=== PATIENT | female | born 1960 | race Caucasian/White ===

== ENCOUNTER 2016-12-14 00:05 | Emergency (ER) | payer OTHER ==
[~2016-12-14] VITALS: Ht 152.4 cm; Wt 70.1 kg
[~2016-12-14 00:05] MED LIST: BENTYL10 MG PO; DAILY VALUE1 EACH PO; HYDROCHLOROTHIA25 MG PO; LISINOPRIL2.5 MG PO; LO-DOSE ASPIRIN81 M1 PO; PRILOSEC20 MG PO; PROMETHAZINE HC25 M1 PO; TYLENOL REGULA325 MG PO; TYLENOL WITH C1 EACH PO
[2016-12-14 00:55] LABS: HEMATOCRIT 42.6 % (36.0-46.0); MCH 29.2 PG (29.0-34.0); MCHC 33.3 G/DL (30.0-36.0); MCV 87.5 FL (83-99); MEAN PLAT.VOLUME 9.8 uM^3 (9.5-12.4); PLATELET COUNT 344 K/uL (156-360); RBC DIS.WIDTH-CV 14.3 % (11.8-14.6); RBC DIS.WIDTH-SD 45.5 % (39-53); RED BLOOD COUNT 4.87 M/uL (3.80-5.20); WHITE BLOOD COUNT 11.8 K/uL (4.1-10.2)
[2016-12-14 01:15] LABS: CHLORIDE 104 mEq/L (99-109); POTASSIUM 4.3 mEq/L (3.7-5.4); SODIUM 139 mEq/L (136-147)
[2016-12-14 01:17] LABS: GLUCOSE 170 mg/dL (70-99)
[2016-12-14 01:19] LABS: ANION GAP 14 MEQ/L (2-14); TOTAL BILIRUBIN 0.4 mg/dL (0.0-1.0)
[2016-12-14 01:21] LABS: ALKALINE PHOSPHATASE 101 IU/L (3-129); GFR ESTIMATE (CALCULATED) > 59 mL/min/
[2016-12-14 01:22] LABS: UREA NITROGEN (BUN) 22 mg/dL (9-23)
[2016-12-14 01:25] LABS: LIPASE 37 U/L (1.0-51.0)
[2016-12-14 01:26] LABS: TROP-I INTERPRETATION NEGATIVE; TROPONIN-I < 0.01 ng/mL (0.0-0.30)
[2016-12-14] MEDS ORDERED: ZOFRAN ODT4 MG PO (01:35)
[2016-12-14 01:51] VITALS: BP 131/76
== END 2016-12-14 01:52 | disposition home or self-care (01) ==
LOC: EME 00:05 → RME 00:05
PROVIDERS: Physician Assistant
DX: R11.2 Nausea with vomiting, unspecified (principal); R10.9 Unspecified abdominal pain; I10 Essential (primary) hypertension; K21.9 Gastro-esophageal reflux disease without esophagitis; Z79.82 Long term (current) use of aspirin
CPT/HCPCS: 74022; 80053; 83690; 84484; 85027; 85651; 86140; 93005; 99281; 99285; J7030

== ENCOUNTER 2017-04-08 21:40 | Inpatient (IN) | payer OTHER ==
[~2017-04-08] VITALS: Ht 154.9 cm; Wt 69.2 kg
[~2017-04-08 21:40] MED LIST changes: +ZOFRAN ODT4 MG PO
[2017-04-08 22:07] LABS: ADD MIUA? YES; BILIRUBIN NEGATIVE; BLOOD MODERATE; COLOR YELLOW ((YELLOW)); GLUCOSE (STRIP) NEGATIVE; KETONES NEGATIVE; LEUKOCYTES SMALL; NITRITE NEGATIVE; PROTEIN (STRIP) NEGATIVE; SPECIFIC GRAVITY 1.026 (1.000-1.030); UROBILINOGEN 0.2 MG/DL (0.2-1.0)
[2017-04-08 22:26] LABS: BACTERIA NONE SEEN /HPF; EPITHELIAL CELLS 1+ /HPF; HYALINE CASTS 0-5 /LPF; MUCUS 3+ /LPF; RED BLOOD CELLS NONE SEEN /HPF (0-5); UCUL ADDED? NO
[2017-04-08 22:39] LABS: HEMATOCRIT 44.9 % (36.0-46.0); MCH 28.8 PG (29.0-34.0); MCHC 32.7 G/DL (30.0-36.0); MCV 87.9 FL (83-99); MEAN PLAT.VOLUME 9.9 uM^3 (9.5-12.4); PLATELET COUNT 330 K/uL (156-360); RBC DIS.WIDTH-SD 45.1 % (39-53); RED BLOOD COUNT 5.11 M/uL (3.80-5.20); WHITE BLOOD COUNT 13.4 K/uL (4.1-10.2)
[2017-04-08 22:48] LABS: CHLORIDE 104 mEq/L (99-109); POTASSIUM 3.9 mEq/L (3.7-5.4); SODIUM 138 mEq/L (136-147)
[2017-04-08 22:51] LABS: GLUCOSE 136 mg/dL (70-99)
[2017-04-08 22:52] LABS: ANION GAP 11 MEQ/L (2-14)
[2017-04-08 22:53] LABS: TOTAL BILIRUBIN 0.4 mg/dL (0.0-1.0)
[2017-04-08 22:54] LABS: ALKALINE PHOSPHATASE 94 IU/L (3-129); GFR ESTIMATE (CALCULATED) > 59 mL/min/
[2017-04-08 22:55] LABS: UREA NITROGEN (BUN) 24 mg/dL (9-23)
[2017-04-09 01:09] LABS: INTER. NORMALIZED RATIO 1.1; PROTHROMBIN TIME 10.7 (9.2-11.2); PTT 27.5 (25-32)
[2017-04-09 01:18] LABS: LIPASE 46 U/L (1.0-51.0)
[2017-04-09 01:21] LABS: TROP-I INTERPRETATION NEGATIVE; TROPONIN-I < 0.01 ng/mL (0.0-0.30)
[2017-04-09] MEDS ORDERED: PRILOSEC20 MG PO (05:43)
[2017-04-09] MEDS ORDERED: LISINOPRIL10 MG PO (05:43)
[2017-04-09] MEDS ORDERED: CLOBETASOL PROP59 ML TP (07:49)
[2017-04-09] MEDS ORDERED: ASPIRIN81 M2 PO (07:50)
[2017-04-09] MEDS ORDERED: CALCIUM ADULT1 EACH PO (07:51)
[2017-04-09] MEDS ORDERED: FIBER SELECT G1 EACH PO (07:52)
[2017-04-09 10:48] VITALS: BP 161/80
[2017-04-09 19:06] VITALS: BP 109/63
[2017-04-09 23:55] VITALS: BP 121/65
[2017-04-10 03:50] VITALS: BP 94/57
[2017-04-10 07:00] VITALS: BP 142/82
[2017-04-10 08:43] LABS: HEMATOCRIT 42.5 % (36.0-46.0); MCH 28.5 PG (29.0-34.0); MCHC 31.5 G/DL (30.0-36.0); MCV 90.2 FL (83-99); RBC DIS.WIDTH-SD 46.7 % (39-53); RED BLOOD COUNT 4.71 M/uL (3.80-5.20); WHITE BLOOD COUNT 6.4 K/uL (4.1-10.2)
[2017-04-10 09:02] LABS: ANION GAP 10 MEQ/L (2-14); CHLORIDE 103 MEQ/L (99-109); SAMPLE HEMOLYSIS CHECK 1; SAMPLE ICTERIC CHECK 0; SAMPLE LIPEMIA CHECK 0; SODIUM 137 MEQ/L (136-147)
[2017-04-10 09:07] LABS: GFR ESTIMATE (CALCULATED) > 59 mL/min/; UREA NITROGEN (BUN) 9 mg/dL (9-23)
[2017-04-10 09:13] LABS: GLUCOSE 92 mg/dL (70-99)
[2017-04-10 09:29] LABS: PLAT.SUFFICIENCY ADEQUATE; PLATELET CLUMPS PRESENT - PLATELET COUNT APPEARS ADQ.; PLATELET COUNT UNABLE TO REPORT K/uL (156-360)
[2017-04-10 10:24] LABS: C DIFF TOXIN NEGATIVE (NEGATIVE)
[2017-04-10 10:32] LABS: PROBE CHECK PASS; SPECIMEN PROCESSING CONTROL PASS
[2017-04-10 16:08] VITALS: BP 120/57
[2017-04-10 22:49] VITALS: BP 126/89
[2017-04-11] MEDS ORDERED: NORVASC5 MG PO (07:15)
[2017-04-11] MEDS ORDERED: CIPRO500 MG PO (07:16)
[2017-04-11 08:00] VITALS: BP 136/82
== END 2017-04-11 12:34 | disposition home or self-care (01) | DRG 372 ==
LOC: EME 21:40 → EDOF 04-09 08:08 → 2EASTP 04-09 10:43
PROVIDERS: Internal Medicine
DX: A04.9 Bacterial intestinal infection, unspecified (principal); K52.1 Toxic gastroenteritis and colitis; T46.4X5A Adverse effect of angiotensin-converting-enzyme inhibitors, initial encounter; I10 Essential (primary) hypertension; K22.70 Barrett's esophagus without dysplasia; R73.03 Prediabetes; K21.9 Gastro-esophageal reflux disease without esophagitis
CPT/HCPCS: 74177; 80048; 80053; 81003; 83605; 83690; 84484; 85027; 85610; 85730; 87040; 87493; 93005; 99281; 99285; J0744; J1650; J2270; J2405; J7030; S0028; S0030

== ENCOUNTER 2018-06-11 02:06 | Emergency (ER) | payer OTHER ==
[~2018-06-11] VITALS: Ht 154.9 cm; Wt 76.2 kg
[~2018-06-11 02:06] MED LIST changes: +ASPIRIN81 M2 PO; +CALCIUM ADULT1 EACH PO; +CIPRO500 MG PO; +CLOBETASOL PROP59 ML TP; +FIBER SELECT G1 EACH PO; +LISINOPRIL10 MG PO; +NORVASC5 MG PO
[2018-06-11 04:35] VITALS: BP 148/82
== END 2018-06-11 04:35 | disposition home or self-care (01) ==
LOC: EME 02:06
DX: M25.511 Pain in right shoulder (principal); G89.29 Other chronic pain; Z88.8 Allergy status to other drugs, medicaments and biological substances
CPT/HCPCS: 93005; 99281; 99284; J1885